=== PATIENT | female | born 1975 | race Caucasian/White ===

== ENCOUNTER 2019-01-30 16:20 | Emergency (ER) | payer SELFPAY ==
[~2019-01-30] VITALS: Ht 162.6 cm; Wt 122.7 kg
[2019-01-30 16:22] VITALS: Ht 162.6 cm; Wt 122.7 kg
[2019-01-30] MEDS ORDERED: TESSALON PERLE100 MG PO (16:24)
[2019-01-30] MEDS ORDERED: ALBUTEROL SULF8.5 GM INH (16:24)
[2019-01-30 17:18] LABS: BASOPHILS 0.2 % (0-2); EOSINOPHILS 5.4 % (0-7); HEMATOCRIT 44.4 % (36.0-48.0); HEMOGLOBIN 14.9 g/dL (12-16); IMMATURE GRANULOCYTES 0.3 % (0-5); LYMPHOCYTES 16.4 % (15-50); MCH 29.2 pg (26.0-34.0); MCHC 33.6 g/dL (31.0-37.0); MCV 87.1 fL (80.0-100.0); MEAN PLATELET VOLUME 10.5 fL (7.4-10.4); MONOCYTES 5.4 % (2-11); NEUTROPHILS 72.3 % (40-80); PLATELET COUNT 316 10x3/uL (130-400); RDW 14.1 % (11.5-14.5); WBC 16.8 10x3/uL (4.8-10.8)
[2019-01-30 17:41] LABS: ALBUMIN 3.9 g/dL (3.4-5.0); ALKALINE PHOSPHATASE 67 U/L (46-116); ALT (SGPT) 20 U/L (10-68); BILIRUBIN - TOTAL 0.36 mg/dL (0.2-1.3); CALC OSMOLALITY 276 mosm/kg (275-300); CARBON DIOXIDE 25.4 mmol/L (21.0-32.0); CHLORIDE - SERUM 105 mmol/L (98-107); CREATININE - SERUM 0.9 mg/dL (0.6-1.3); GLUCOSE 103 mg/dL (74-106); POTASSIUM - SERUM 4.1 mmol/L (3.5-5.1); PROTEIN - SERUM 7.8 g/dL (6.4-8.2); SODIUM 139 mmol/L (136-145); UREA NITROGEN 11 mg/dL (7-18); eGFR NON AFRICAN AMERICAN 72 mL/min (90-120)
[2019-01-30 17:54] LABS: APPEARANCE CLEAR (CLEAR); BILIRUBIN NEGATIVE (NEGATIVE); COLOR YELLOW (YELLOW); GLUCOSE NEGATIVE (NEGATIVE); KETONE NEGATIVE (NEGATIVE); NITRITE POSITIVE (NEGATIVE); PROTEIN NEGATIVE (NEGATIVE); SPECIFIC GRAVITY 1.025 (1.005-1.020); UROBILINOGEN NORMAL (NORMAL)
[2019-01-30 17:55] LABS: CKMB 0.8 U/L (0.0-3.6); CREATINE KINASE 66 UL (21-215); PRO BNP 80 pg/mL (0-125)
[2019-01-30 18:00] LABS: TROPONIN-I < 0.017 ng/mL (0.000-0.060)
[2019-01-30] MEDS ORDERED: FLUTICASONE PRO16 GM NASAL (18:46)
[2019-01-30] MEDS ORDERED: ZYRTEC10 MG PO (18:46)
[2019-01-30 19:03] VITALS: BP 129/78
== END 2019-01-30 19:04 | disposition home or self-care (01) ==
LOC: D.ER 16:20
PROVIDERS: Family Medicine
DX: J30.9 Allergic rhinitis, unspecified (principal)